=== PATIENT | male | born 1995 | race Caucasian/White ===

== ENCOUNTER 2021-03-26 21:38 | Emergency (ER) | payer OTHER ==
[2021-03-26] MEDS ORDERED: LIDOCAINE PATCH REMOVAL MC SCH (22:00)
[2021-03-26] MEDS ORDERED: METHOCARBAMOL 500 MG TABLET PO ONE (22:42)
[2021-03-26] MEDS ORDERED: LIDOCAINE 5% TOPICAL PATCH TP ONE (22:42)
[2021-03-26] MEDS ORDERED: IBUPROFEN 600 MG TABLET (FP) PO ONE ×2 (22:42→22:47)
[2021-03-26] MEDS ORDERED: METHOCARBAMOL 500 MG TABLET ONE (22:46)
[2021-03-26] MEDS ORDERED: LIDOCAINE 5% TOPICAL PATCH ONE (22:47)
[2021-03-26 23:26] LABS: ALBUMIN 4.1 g/dl (3.4-5.0); BILIRUBIN,TOTAL 0.4 mg/dl (0.2-1); CALCIUM 9.1 mg/dl (8.5-10); CREATININE 1.1 mg/dl (0.55-1.3); TOT PROT 7.2 g/dl (6.4-8.2)
[2021-03-27 00:49] LABS: BASO % 0.5 % (0-2.0); MEAN PLT VOLUME 8.5 fl (7.5-11.1); WHITE BLOOD COUNT 11.5 K/mm3 (4.0-10.0)
[2021-03-27 00:53] LABS: HEMATOCRIT 46.9 % (35.4-49); HEMOGLOBIN 16.2 GM/dL (11.7-16.9); LYMPH % 23.2 % (8-40); MCHC 34.6 g/dl (32.0-35.9); MEAN CELL VOLUME 78.2 fl (80-96); MONO % 6.7 % (3.8-10.2); NEUT % 61.6 % (42.8-82.8); PLATELET COUNT 269 10^3/uL (134-434); RBC 5.99 M/mm3 (4.00-5.60); RDW 13.6 % (11.9-15.9)
== END 2021-03-27 00:42 | disposition home or self-care (01) ==
LOC: FER 21:38
DX: M54.6 Pain in thoracic spine (principal); X50.1XXA Overexertion from prolonged static or awkward postures, initial encounter
CPT/HCPCS: 36415; 80053; 85025; 85379; 99283-25